=== PATIENT | female | born 1980 | race Caucasian/White ===

== ENCOUNTER → 2018-02-23 | Outpatient (CLI) | payer OTHER ==
--- NOTE | 2018-02-23 13:05 | MRI ---
EXAM DESCRIPTION: Abdomen w/wo Contrast CLINICAL HISTORY: 38 years Female, ABNORMAL CT COMPARISON: None. TECHNIQUE: Multiplanar multisequence MR imaging of the abdomen was performed with attention to the liver. Postcontrast images were also obtained after standard adult dose of gadolinium contrast was administered intravenously. FINDINGS: Coronal T1 images show low signal intensity focus in the left lobe of liver suggesting a cyst. Normal appearance of kidneys and spleen, heart and upper abdominal bowel loops. Coronal T2 images confirm cystic lesion in the left lobe lateral segment 2 cm in diameter with internal septations. This appears benign. Normal common bile duct. No worrisome intrahepatic ductal dilatation. Gallbladder appears normal as does the stomach. No pancreatic lesion. Splenic length of 11.6 cm is normal. Liver length of 15.5 cm is normal. Axial images show normal appearance of the kidneys. No bile duct or pancreatic duct dilatation. The multiloculated cystic lesion in the left lobe of liver is most consistent with a benign hepatic cyst. No connection with the bile duct. No inflammation to suggest parasitic cyst. No evidence of hemorrhage or thickened wall to suggest abscess. Additional tiny cystic lesion of the medial posterior right lobe of liver measures 3 mm. Tiny cyst at the dome of the right lobe of the liver is 2 mm. A few other tiny cysts are questioned on the fat sat axial T2 images. These all appear benign. Axial dual phase gradient echo T1 imaging shows loss of signal intensity within the liver on the opposed phase images consistent with inhomogeneous fatty infiltration. Right lobe shows a greater degree of signal loss in the left lobe. Geographic fatty infiltration is a common pattern which is not considered suggestive of a mass or malignancy. Coronal T1 gradient echo dual phase imaging confirms the finding. Adrenal glands appear normal. Diffusion-weighted imaging shows increased signal intensity within the cysts. ADC mapping is negative. Small cysts are well visualized on the diffusion-weighted images. Pre and postcontrast images are compared. Arterial phase images show normal renal cortical enhancement with normal enhancement of aorta and upper abdominal arteries. There is normal enhancement of the pancreas with normal early enhancement of liver and spleen. No arterialization within the liver. Normal enhancement of hepatic veins and portal vein on the portal venous phase images. IMPRESSION: Benign-appearing hepatic cysts, the largest in the lateral segment left lobe measuring 2.3 cm. Inhomogeneous fatty infiltration of the liver. Electronically signed by: Candelario Lopez MD 02/23/2018 1:02 PM CDT
== END ==
LOC: MRI 11:02
PROVIDERS: ATTEND Nurse Practitioner Family
DX: R93.2 Abnormal findings on diagnostic imaging of liver and biliary tract (principal); K76.89 Other specified diseases of liver; K76.0 Fatty (change of) liver, not elsewhere classified

== ENCOUNTER → 2019-05-23 | Outpatient (CLI) | payer OTHER ==
--- NOTE | 2019-05-24 12:18 | US ---
EXAM DESCRIPTION: Soft Tissue,Abdomen: ULTRASOUND. CLINICAL HISTORY: 39 years Female Lump. Anterior abdominal wall (midline. COMPARISON: None Available. TECHNIQUE: Transcutaneous scanning: Serrano-scale and Doppler modes.. Scanning over the palpable lump. FINDINGS: Hypoechoic solid mass with lobulated margin, wider than tall orientation, and measuring 2.9 x 1.7 x 1.2 cm. Vascular margin with no internal fluid or large calcifications. Posterior acoustic enhancement. No adjacent solid mass or distinct cyst. No parenchymal edema or large calcifications in the adjacent soft tissues. IMPRESSION: Almost 3 cm hypoechoic solid mass in the left abdominal wall there is palpable. Microlobulated vascular margins. Differential includes abscess, reactive lymph node, or tumor. Consider cross-sectional imaging, or tissue diagnosis without or with imaging guidance. Electronically signed by: Gerardo Gupta MD 05/24/2019 12:16 PM CDT
== END ==
LOC: RAD 13:56
PROVIDERS: ATTEND Nurse Practitioner Family
DX: R19.07 Generalized intra-abdominal and pelvic swelling, mass and lump (principal)

== ENCOUNTER → 2020-11-06 | Outpatient (CLI) | payer SELFPAY | LOC: LAB.O 11:29 | PROVIDERS: ATTEND Nurse Practitioner Family | DX: D89.89 Other specified disorders involving the immune mechanism, not elsewhere classified (principal) ==